=== PATIENT | female | born 1960 ===

== ENCOUNTER 2024-12-12 12:33 | Outpatient (AMB) | payer MEDICARE, SELFPAY ==
--- NOTE | 2024-12-12 12:34 | MHC.OFFVIS ---
Vital Signs 12/12/24 12:41 Height 4 ft 11.5 in Weight 162 lb BMI 32.2 BP 122/72 Blood Pressure Location Lt brachial Position Sitting Pulse 100 Pulse Source Pulse Oximeter Pulse Oximetry (%) 96 Oxygen Delivery Method Room Air Intake Visit Reasons: Scleroderma Intake Note: Patient presents for scleroderma follow up. Allergies sulfamethoxazole [From Bactrim] Allergy (Mild, Verified 12/12/24 12:43) Rash trimethoprim [From Bactrim] Allergy (Mild, Verified 12/12/24 12:43) Rash bee stings Allergy (Mild, Uncoded 12/12/24 12:43) Anaphylaxis HPI HPI Scleroderma: Details: She feels well. She has noticed decreased thickness of skin in her upper arms. Denies new infections. She feels well. She will be seeing oncologist Dr. Strong in January. She will be getting surveillance CT scans in December. [facility] Surgical History (Updated 12/12/24 @ 12:50 by Mirna Enriquez CMA) H/O lumpectomy Family History (Updated 12/12/24 @ 12:50 by Mirna Enriquez CMA) Maternal Grandfather Stroke Maternal Grandmother Heart attack Social History (Updated 12/12/24 @ 12:48 by Mirna Enriquez CMA) Household Members: Family and Friend(s) Review of Systems Const All systems reviewed & are unremarkable except as noted in HPI and below Physical Exam Vital Signs: Last Vital Signs Pulse 100 12/12/24 12:41 BP 122/72 12/12/24 12:41 Pulse Ox 96 12/12/24 12:41 Oxygen Delivery Method Room Air 12/12/24 12:41 BMI result Body Mass Index 32.2 Const Other: General: Comfortable CVS: RRR Respiratory: clear to auscultation bilaterally. Good respiratory effort Skin: Diffuse skin tightness mRSS: Fingers: L 3, R 3 Hands: L 3, R 3 Forearms: L 3, R 3 Upper arms: L 2, R 3 Face: 0 Anterior chest: 1 Abdomen: 2 Thighs: L 3, R 3 Legs: L 3, R 3 Feet: L 3 R 3 Total: 44 MSK: No tenderness of any joints. No synovitis. Good range of motion of upper extremities. 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 Status post rituximab 2nd cycle with infusion reaction x2. Methotrexate [id number] discontinued due to transaminitis), MMF 2023-. She has had improvement of cutaneous disease in her bilateral upper arms on mycophenolate mofetil. Code(s): M34.89 - Other systemic sclerosis Category: Medical Plan: Labs for disease and drug monitoring on high-risk medication ordered I plan to increase mycophenolate mofetil to a 1000 mg b.i.d. after lab results are reviewed Return to clinic 3 months (2) Other vehicle service attendant (current) drug therapy: Code(s): Z79.899 - Other vehicle service attendant (current) drug therapy Category: Medical Plan: See above Orders: Orders Erythrocyte Sedimentation Rate Today M3.89 - Other systemic sclerosis, Z79.899 - Other intermediate (current) drug therapy C Reactive Protein Today .89 - Other systemic sclerosis, Z79.899 - Other intermediate (current) drug therapy Hepatitis B,C Profile Today - Other systemic sclerosis, Z79.899 - Other vehicle service attendant (current) drug therapy Alanine Aminotransferase Today Z79.60 - medical secretary receptionist (current) use of unspecified immunomodulators and immunosuppressants Aspartate Amino Transferase Today Z79.60 - medical secretary receptionist (current) use of unspecified immunomodulators and immunosuppressants Complete Blood Count Auto Diff Today Z79.60 - half-way (current) use of unspecified immunomodulators and immunosuppressants Creatinine Today Z79.60 - half-way (current) use of unspecified immunomodulators and immunosuppressants T Spot TB Today - Other systemic sclerosis, Z79.899 - Other vehicle service attendant (current) drug therapy Coding Level of Care Code Est Pt Level 4 (55191) Complex EM visit Add On G2211 Diagnoses Diffuse cutaneous systemic sclerosis M34.89 Other intermediate (current) drug therapy Z79.899
[2024-12-12 12:41] VITALS: BP 122/72; PULSE 100; O2SAT 96; BMI 32.2
== END 2024-12-12 13:42 | disposition home or self-care (01) ==
PROVIDERS: PCP Physician Assistant Medical; Visit Provider Internal Medicine Rheumatology
DX: M34.89 Other systemic sclerosis (principal); Z79.899 Other long term (current) drug therapy
CPT/HCPCS: 99214; G2211

== ENCOUNTER 2024-12-12 12:33 | Outpatient (REF) | payer MEDICARE, MEDICAID, SELFPAY ==
--- OUTSIDE RECORDS SUMMARY | 2024-12-12 16:11 | XMS_ITS | Clinical Summary ---
Author Organization [facility] Address [address] [place] [address] Care Team Providers Care Slag Skimmer Name Role Phone Sujatha Fragoso PA-C Primary Care Provider Allergies Active Allergy Reactions Criticality Noted Date Comments Sulfamethoxazole-Trimethoprim Rash Low 2015 Bee Sting Swelling 02/15/2016 Ibuprofen 02/15/2016 Unsure Medications Medication Sig Dispensed Refills Start Date End Date Status Multiple Vitamins-Minerals (MULTIVITAMIN PO) Take 1 tablet by mouth daily. 0 Active ergocalciferol (VITAMIN D2) capsule 26307 units TAKE 1 CAPSULE BY MOUTH EVERY TWO WEEKS 3 07/09/2017 Active aspirin EC 81 MG tablet Take 1 tablet (81 mg total) by mouth daily. 0 Active metFORMIN (GLUCOPHAGE) tablet 500 mg TAKE 1 TABLET 3 TIMES A DAY FILL 05/20/15* 270 tablet 3 06/09/2018 Active Additional Information Patient taking differently: 500 mg Oral Every Morning with breakfast, Reason: Other, Reported on 12/25/2023 MICROLET LANCETS MISC Use 4 times daily E119. [id number] 400 each 1 11/26/2019 Active Ivermectin 1 % CREA Apply 1 drop topically. 0 05/18/2021 Active ferrous sulfate 325 (65 FE) MG tablet Take 1 tablet (325 mg total) by mouth every morning with breakfast. 0 Active glucose blood (Contour Next Test) test strip TEST TWO TIMES DAILY E11.9 / [id number] 200 each 3 10/30/2022 Active Insulin Degludec (Tresiba) 100 UNIT/ML SOLN Inject 10 Units under the skin every night at bedtime. And titrate as directed y 1 unit qd if FBS over 150 9 mL 0 10/03/2023 Active Insulin Pen Needle (Pen Logan) 32G X 4 MM MISC Inject 1 each under the skin daily. With insulin 100 each 1 10/03/2023 Active Glucagon (Baqsimi Two Pack) 3 MG/DOSE POWD spray or apply 1 Dose inside Nose daily as needed (altered mental status due to low blood sugar). 1 each 1 10/03/2023 Active hydroCHLOROthiazid e (MICROZIDE) 12.5 MG capsule Take 1 capsule (12.5 mg total) by mouth daily. 0 11/20/2023 Active Januvia 100 MG tablet Take 1 tablet (100 mg total) by mouth daily. 0 10/24/2023 Active Icosapent Ethyl (Vascepa) 0.5 g CAPS Take 1 capsule by mouth daily. 90 capsule 3 12/10/2023 Active Insulin Glargine (Basaglar KwikPen) 100 UNIT/ML SOPN See Instructions, Take 15 units Subcutaneous Injection Daily at bedtime. E11.9, # 15 mL, 5 Refills, Maintenance, 06/20/23 10:29:00 EDT, Solution, [id number], Partial fill upon patient request if the prescription is for a schedule II opioid sandra... 0 06/20/2023 Active methotrexate 2.5 MG tablet TAKE 5 TABLETS ONCE A WEEK ON MONDAY 0 10/31/2023 Active Tresiba FlexTouch 100 UNIT/ML SOPN INJECT 10 UNITS AT BEDTIME, INCREASE DIRECTED BY 1 UNIT/DAY IF FBG >150 3 mL 2 07/20/2024 Active lisinopril (PRINIVIL,ZESTRIL) tablet 40 mg Take 1 tablet (40 mg total) by mouth daily. 90 tablet 3 07/20/2024 Active amLODIPine (NORVASC) tablet 2.5 mg TAKE 1 TABLET (2.5 MG TOTAL) BY MOUTH DAILY. FOR BLOOD PRESSURE. CONTINUE LISINOPRIL 90 tablet 1 07/20/2024 Active simvastatin (ZOCOR) tablet 20 mg Take 1 tablet (20 mg total) by mouth every night at bedtime. 90 tablet 3 07/20/2024 Active mycophenolate (CELLCEPT) 500 MG tablet TAKE 1 TABLET BY MOUTH 2 TIMES A DAY FOR 30 DAYS. 60 tablet 0 08/23/2024 Active Active Problems Problem Noted Date Diagnosed Date Scleroderma 06/21/2022 Overview: Dr. 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 Normal LV function. Mild upper septal hypertrophy, otherwise normal. Cardiology consultation at [facility] 09/18/2017. 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 07/30/2019 Overview: Overview: Primary site unknown Henoch-Schonlein purpura 09/01/2018 Class 1 obesity due to exces s calories with serious comorbidity and body mass index (BMI) of 33.0 to 33.9 in adult 09/01/2018 Type 2 diabetes mellitus wit h hyperglycemia, with long-term current use of insulin 09/01/2018 Developmental disability 09/01/2018 Diverticulosis 09/01/2018 Hypertension 09/28/2017 Eczema 09/28/2017 Rosacea 09/28/2017 Kidney stone 09/24/2015 UTI (urinary tract infection) 11/20/2012 Immunizations Name Administration Dates Next Due Covid-19 (Moderna 12+) 100mcg/0.5mL dosage 02/22,01/25/2021 Influenza Quad (Fluarix/Fluz one/FluLaval) 0.5mL (SD-IIV4) 10/02/2022,09/24/2021,09/05/2019 Influenza Quad (Flucelvax) 0 .5mL >6mon (ccIIV4) 09/04/2018 Influenza Vaccine, Unspecified formulation 09/11 Pneumococcal Polysaccharide PPSV23 10/24/2006 Td (Tenivac) 04/26/2009 Family History Medical History Relation Name Comments Hyperlipidemia Mother Severe Type I II Obesity Mother Heart disease Other Runs in Family Relation Name Status Comments Mother Other Social History Tobacco Use Types Packs/Day Years Used Date Smoking Tobacco: Never Smokeless Tobacco: Never Alcohol Use Standard Drinks/Week Comments No 0 (1 standard drink = 0.6 oz pur e alcohol) occasionally Sex and Gender Information Value Date Recorded Sex Assigned at Not on file Gender Identity Not on file Sexual Orientation Not on file Job Start Date Occupation Industry Not on file Not on file Not on file Last Filed Vital Signs Vital Sign Reading Time Taken Comments Blood Pressure 142/83 11/22/2023 8:23 AM EST Pulse 109 11/22/2023 8:23 AM EST Temperature 36.8 ??C (98.3 ??F) 10/03/2023 1:08 PM ES T Respiratory Rate - - Oxygen Saturation 98% 10/03/2023 1:08 PM EST Inhaled Oxygen Concentration - - Weight 76.3 kg (168 lb 3.2 oz) 11/22/2023 8:23 A M EST Height 149.9 cm (4' 11 ) 10/03/2023 1:08 PM EST Body Mass Index 33.97 10/03/2023 1:08 PM EST Plan of Treatment Health Maintenance Due Date Last Done Comments Diabetes: Eye Exam (No Retinopathy) 1980 Diabetes: Foot Exam 1980 Diabetes: Microalbumin Test 1980 Shingrix-Zoster Vaccine (1 of 2) 1981 Pneumococcal Vaccine (2 of 2 - PCV) 10/24/2007 10/24/2006 DTap / Tdap / Td (1 - Tdap) 04/27/2009 04/26/2009 COVID-19 Vaccine (3 - Moderna risk series) 03/22/2021 02/22/2021, 01/25/2021 RSV Adult > 60+ Yrs or (1 - Risk 60-74 years 1-dose series) 2022 BMI Counseling 09/15/2022 09/15/2021, 08/21, 09/05/2019 Colon Cancer Screening (Colonoscopy) 11/20/2022 11/20/2012 Breast Cancer Screening (Mammogram) 01/18/2023 01/18/2021, 09/14/2020 (Pt Reported - Need documentation) Cervical Cancer Screening (Pap Smear) 09/14/2023 09/14/2020 (Pt Reported - Need documentation) Hemoglobin A1C Due 03/29/2024 09/29/2023, 1 11/30/2021, 09/14/2020 (Scheduled) Influenza Vaccine (#1) 2024 2, 09/24/2021, 09/05/2019, Additional history exists Depression Screening 10/03/2024 10/03/2023, 09/15/2021, 09/14/2020, Additional history exists Preventative Health Evaluation 10/03/2024 10/03/2023, 10/02/2022, 09/14/2020, Additional history exists Hepatitis C Screening Completed 04/27/2022 Hepatitis B Vaccines Aged Out No long er eligible based on patient's age to complete this topic RSV Ped < 20 months Aged Out No longe r eligible based on patient's age to complete this topic Care Teams Slag Skimmer Relationship Specialty Start Date End Date Sujatha Fragoso PA-C PCP - General Neuropsychiatric Aide 12/05/21
--- OUTSIDE RECORDS SUMMARY | 2024-12-12 16:11 | XMS_ITS | Encounter Summary ---
Author Organization [facility] Address [address] [place] [address] Phone Care Team Providers Care Drum Puller Name Role Phone Sujatha Fragoso Primary Care Provider Unavailabl e Encounter Details Date Type Department Care Team (Late st Contact Info) Description 07/20/2022 Telephone [facility] [address] [place] [address] Que Castillo MD [address] [facility] [address] [place] [address] Social History Tobacco Use Types Packs/Day Years Used Date Smoking Tobacco: Never Alcohol Use Standard Drinks/Week Comments No 0 (1 standard drink = 0.6 oz pur e alcohol) Comments Unknown Sex and Gender Information Value Date Recorded Sex Assigned at Not on file Legal Sex Female 5:12 PM EST Gender Identity Not on file Sexual Orientation Not on file documented as of this encounter Miscellaneous Notes * Telephone Encounter - Doris Aranda - 07/20/2022 9:41 AM EDT Pts proxy tabitha called Ruma has been diagnosed with systemic fibrosis. She has been put on rituxan. If you have any concerns call [phone] documented in this encounter Plan of Treatment Upcoming Encounters Date Type Department Care Team (Late st Contact Info) Description 01/09/2025 Orders Only [facility] [address] [place] [address] Que Castillo MD [address] [facility] [facility] [address] [place] [address] IgA nephropathy; Hypertension; Type 2 diabetes mellitus, not otherwise specified (HCC) 03/18/2025 10:15 AM EDT Office Visit [facility] [address] [phone] Que Castillo MD [address] [phone] documented as of this encounter Visit Diagnoses Not on filedocumented in this encounter Care Teams Drum Puller Relationship Specialty Start Date End Date Sujatha Fragoso PCP - General Physician Bagel Maker 02/07/24 documented as of this encounter
--- OUTSIDE RECORDS SUMMARY | 2024-12-12 16:11 | XMS_ITS | Encounter Summary ---
Author Organization [facility] Address [address] [place] [address] Phone Care Team Providers Care Medical Dosimetrist Name Role Phone Sujatha Fragoso Primary Care Provider Unavailabl e Encounter Details Date Type Department Care Team (Late st Contact Info) Description 04/27/2022 Telephone [facility] [address] [place] [address] Que Castillo MD [address] [place] [address] Social History Tobacco Use Types [...] * Telephone Encounter - Doris Aranda - 05/04/2022 11:44 AM EDT Pt called back, she spoke with Dr. Carter's office and they provided an alternate number to fax the referral too FAX # [phone] * Telephone Encounter - Doris Aranda - 04/27/2022 3:51 PM EDT Pt called, she would like to confirm if she is supposed to be taking torsemide 20 mg qd. Please advise Thank you documented in this encounter Plan of Treatment Upcoming Encounters Date Type Department Care Team (Late st Contact Info) Description 01/09/2025 Orders Only [facility] [address] [place] [phone] Que Castillo MD [address] [facility] [address] [place] [address] IgA nephropathy; Hypertension; Type 2 diabetes mellitus, not otherwise specified (HCC) 03/18/2025 10:15 AM EDT Office Visit [facility] [address] [facility] [address] [place] [phone] Que Castillo MD [address] [facility] [address] [place] [address] documented as of this encounter Visit Diagnoses Not on filedocumented in this encounter Care Teams Medical Dosimetrist Relationship Specialty Start Date End Date Sujatha Fragoso PCP - General Physician Labor Expediter 02/07/24 documented as of this encounter
--- OUTSIDE RECORDS SUMMARY | 2024-12-12 16:11 | XMS_ITS | Clinical Summary ---
Author Organization [facility] Address [address] [facility] [address] [place] [address] Phone Care Team Providers Care Extension Course Coordinator Name Role Phone Sujatha Fragoso Primary Care Provider Unavailabl e Allergies Active Allergy Reactions Criticality Noted Date Comments Bee Venom Swelling 02/15/2016 Ibuprofen 02/15/2016 Unsure Sulfamethoxazole-Trimethopr im Rash Low 02/15/2016 Other reaction(s): Rash Medications metFORMIN (GLUCOPHAGE) 500 MG tablet Take 1 tablet by mouth 3 (three) times a day Active lisinopril (PRINIVIL,ZESTR IL) 40 MG tablet Take 1 tablet by mouth 2 (two) times a day 02/23/2012 Active aspirin (ST MARBELLA) 81 MG EC tablet Take 1 tablet by mouth every morning Active Multiple Vitamins-Minera ls (CENTRUM ADULTS PO) Active Icosapent Ethyl (Vascepa) 0.5 g capsule Take 1 tablet by mouth 1 (one) time each day 02/11/2021 Active simvastatin (ZOCOR) 20 MG tablet Take 20 mg by mouth 1 (one) time each day in the evening 01/29/2021 Active Jardiance 25 MG tablet Take 1 tablet by mouth 1 (one) time each day 02/21/2021 Active SITagliptin (JANUVIA) 100 MG tablet Take 100 mg by mouth 1 (one) time each day Active hydroCHLOROthia zide (MICROZIDE) 12.5 MG capsule TAKE 1 CAPSULE BY MOUTH EVERY DAY 90 capsule 3 04/23/2024 Active ergocalciferol 1.25 MG (09189 UT) capsule TAKE 1 CAPSULE BY MOUTH EVERY 2 WEEKS 6 capsule 4 05/16/2024 Active Active Problems Problem Noted Date Diagnosed Date Obese class I 02/06/2024 Systemic sclerosis 06/21/2022 Overview (02/06/2024): Dr. 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 Normal LV function. Mild upper septal hypertrophy, otherwise normal. Cardiology consultation at [facility] 09/18/2017. Malignant melanoma 07/30/2019 Overview (03/24/2021): Primary site unknown Developmental disorder 09/01/2018 Diverticular disease 09/01/2018 Henoch-Schonlein purpura 09/01/2018 Severe obesity 09/01/2018 Type 2 diabetes mellitus 09/01/2018 Eczema 09/28/2017 Hypertension 09/28/2017 Rosacea 09/28/2017 Renal stone 09/24/2015 Urinary tract infectious disease 11/20/2012 Immunizations Name Administration Dates Next Due Influenza, MDCK, PF, Quadrivalent 09/04/2018 Influenza, Quadrivalent, Preservative Free 10/02,09/24/2021,09/05/2019 Influenza, Unspecified 09/11/2020 Moderna SARS-COV-2 02/22/2021,01/25/2021 Pneumococcal Polysaccharide 10/24/2006 TD Preservative Free 04/26/2009 Family History Relation Status Comments Mother Alive Social History Tobacco Use Types Packs/Day Years Used Date Smoking Tobacco: Never Alcohol Use Standard Drinks/Week Comments No 0 (1 standard drink = 0.6 oz pur e alcohol) Comments Unknown Sex and Gender Information Value Date Recorded Sex Assigned at Not on file Legal Sex Female 5:12 PM EST Gender Identity Not on file Sexual Orientation Not on file Last Filed Vital Signs Vital Sign Reading Time Taken Comments Blood Pressure 74/58 04/27/2022 1:23 PM EDT Pulse 102 02/07/2024 11:22 AM EDT Temperature - - Respiratory Rate - - Oxygen Saturation 96% 02/07/2024 11:22 AM EDT Inhaled Oxygen Concentration - - Weight 74.7 kg (164 lb 9.6 oz) 02/07/2024 11:22 AM EDT Height 152.4 cm (5') 03/06/2019 12:00 PM EDT Body Mass Index 32.15 03/06/2019 12:00 PM EDT Plan of Treatment Upcoming Encounters Date Type Department Care Team (Late st Contact Info) Description 01/09/2025 Orders Only [facility] [address] [facility] [address] [place] [phone] Que Castillo MD [address] [facility] [address] [place] [phone] IgA nephropathy; Hypertension; Type 2 diabetes mellitus, not otherwise specified (HCC) 03/18/2025 10:15 AM EDT Office Visit [facility] [address] [facility] [address] [place] [phone] Que Castillo MD [address] [phone] Health Maintenance Due Date Last Done Comments Breast Cancer Screening 1960 Pneumococcal Vaccine: Pediatrics (0 to 5 Years) and At-Risk Patients (6 to 64 Years) (2 of 2 - PCV) 10/24/2007 10/24/2006 Colorectal Cancer Screening: Annual FOBT 2011 Colorectal Cancer Screening: Colonoscopy 2011 Colorectal Cancer Screening: Sigmoidoscopy 2011 Diabetes: Hemoglobin A1C 02/02/2021 08/30/2019 Diabetes: Ophthalmology Exam 02/02/2021 Diabetes: Pedal Pulse Checked 02/02/2021 Diabetes: Sensory Foot Exam 02/02/2021 Diabetes: Visual Foot Exam 02/02/2021 Influenza Vaccine (#1) 2024 2, 09/24/2021, 09/11/2020, Additional history exists Hepatitis B Vaccine Aged Out No longe r eligible based on patient's age to complete this topic Procedures Procedure Name Priority Date/Time Associated Diagnosis Comments BLOOD PANEL (HC) Routine 08/30/2019 12:0 0 AM EDT from Last 3 Months or Most Recently Relevant to Health Maintenance Results * (ABNORMAL) Blood Panel (08/30/2019 12:00 AM EDT) Hemoglobin A1C 6.1(H) <5 % PVNMA 08/30/2019 us Rtama Conversion LAB [id number] LICITED RESULTS Final Result PVNMA from Last 3 Months or Most Recently Relevant to Health Maintenance Insurance [place]ICAID [place] MEDICARE [place]ICAID [place] Care Teams Extension Course Coordinator Relationship Specialty Start Date End Date Sujatha Fragoso PCP - General Physician Starch Crab 02/07/24
--- OUTSIDE RECORDS SUMMARY | 2024-12-12 16:11 | XMS_ITS | Encounter Summary ---
Author Organization [facility] Address [address] [place] [address] Phone Care Team Providers Care Cable Ferry Operator Name Role Phone Sujatha Fragoso Primary Care Provider Unavailabl e Encounter Details Date Type Department Care Team (Latest Contact Info) Description 02/24/2024 Office Communication [facility] [address] [facility] 200 [place] [address] Que Castillo MD [address] [facility] [address] [place] [address] IgA nephropathy (Primary Dx) Social History Tobacco Use Types Packs/Day Years [...] encounter Miscellaneous Notes * Telephone Encounter - Que Castillo MD - 02/24/2024 5:34 AM EDT Need to ge =t repeat urine studies and blood work in 1 week documented in this encounter Plan of Treatment Upcoming Encounters Date Type Department Care Team (Late st Contact Info) Description 01/09/2025 Orders Only [facility] [address] [place] [address] Que Castillo MD [address] [facility] 204 [place] [address] IgA nephropathy; Hypertension; Type 2 diabetes mellitus, not otherwise specified (HCC) 03/18/2025 10:15 AM EDT Office Visit [facility] [address] [facility] [address] [place] [address] Que Castillo MD [address] [facility] [address] [place] [address] Scheduled Orders Name Type Priority Associated Diagnoses Orde r Schedule Protime-INR Lab Routine IgA nephropathy Expected: 03/02/2024, Expires: 03/25/2025 documented as of this encounter Results * Albumin (03/01/2024 8:32 AM EDT) Pathologist [facility] Albumin 4.1 3.9 - 4.9 g/dL See order comments Blood (Blood, Venous) 03/01/2024 8:32 AM EDT 03/01/2024 Narrative [facility] - 03/06/2024 4:08 PM EDT Performed at: ??01 - [facility] [address] ??[id number] Pulp Grinder: Georgie Smith MD, Phone: ??[phone] us Que Castillo MD LAB BLOOD ORDERABLES Final Re sult [facility] See order comments [place] [address] * Phospholipase A2 Receptor Antibodies (03/01/2024 8:32 AM EDT) Anti-PLA2R <1.8 0.0 - 19.9 RU/mL See order comments Comment: ?Negative ?<14.0 ?Borderline ??14.0 - 19.9 ?Positive ?>19.9 Blood (Blood, Venous) 03/01/2024 8:32 AM EDT 03/01/2024 Narrative [facility] - 03/06/2024 4:08 PM EDT Performed at: ??02 - [facility] [address] ??[id number] Pulp Grinder: Raven Anguiano MD, Phone: ??[phone] us Que Castillo MD LAB BLOOD ORDERABLES Final Re sult [facility] See order comments [place] [address] * (ABNORMAL) Urinalysis with microscopic (03/01/2024 8:32 AM EDT) Specific [place], Urine 1.026 1.005 - 1.030 See order comments pH Urine 7.5 5.0 - 7.5 See order comments Color, Urine Yellow Yellow See ord er comments Appearance Urine Clear Clear See order comments WBC Esterase Urine Negative Negative See order comments Protein, Ur 3+(A) Negative/Tra ce See order comments Glucose, Ur 3+(A) Negative See orde r comments Ketones, Urine Negative Negative See o rder comments Blood Urine Negative Negative See orde r comments Bilirubin Urine Negative Negative See order comments Urobilinogen Urine 0.2 0.2 - 1.0 mg/dL See order comments Nitrite, Urine Negative Negative See o rder comments Microscopic Examination See below: See order comments Comment:Microscopic was bryson cated and was performed. Urine (Urine, Clean Catch) 03/01/2024 8:32 AM EDT 03/01/2024 Narrative [facility] - 03/06/2024 4:08 PM EDT Performed at: ??01 - [facility] [address] ??[id number] Pulp Grinder: Georgie Smith MD, Phone: ??[phone] us Que Castillo MD LAB URINE ORDERABLES Final Re sult Performing Organization Address [facility] de Phone Number [facility] See order comments [place] [address] * (ABNORMAL) Urine Albumin / Creatinine Ratio (03/01/2024 8:32 AM EDT) Creatinine, Ur 38.5 Not Estab. mg/dL See order comments Urine Microalbumin 2,608.6 Not Estab. ug/mL See order comments Comment: Results confirmed on dilution. Microalbumin/Crea tinine Ratio 6,776(H) 0 - 29 mg/g creat See order comments Comment: ? Normal: ?0 - ??29 ? Moderately increased: 30 - 300 ? Severely increased: ? >300 Urine (Urine, Clean Catch) 03/01/2024 8:32 AM EDT 03/01/2024 Narrative [facility] - 03/06/2024 4:08 PM EDT Performed at: ??01 - [facility] [address] ??[id number] Pulp Grinder: Georgie Smith MD, Phone: ??[phone] Que Castillo MD LAB URINE ORDERABLES Final Re sult Performing Organization Address [facility] Co de Phone Number [facility] See order comments [place] [address] documented in this encounter Visit Diagnoses Diagnosis IgA nephropathy- Primary IgA nephropathy IgA nephropathy Hypertension Type 2 diabetes mellitus, not otherwise specified (HCC) documented in this encounter Care Teams Cable Ferry Operator Relationship Specialty Start Date End Date Sujatha Fragoso PCP - General Physician Riveting Machine Operator 02/07/24 documented as of this encounter
--- OUTSIDE RECORDS SUMMARY | 2024-12-12 16:11 | XMS_ITS | Encounter Summary ---
Author Organization [facility] Address [address] [place] [address] Phone Care Team Providers Care Zookeeper Name Role Phone Sujatha Fragoso Primary Care Provider Unavailabl e Encounter Details Date Type Department Care Team (Late st Contact Info) Description 04/27/2022 Telephone [facility] [address] [place] [address] Que Castillo MD [address] [facility] 204 [place] [address] Social History Tobacco Use Types [...] Telephone Encounter - Doris Aranda - 04/27/2022 3:35 PM EDT Pts returned goods inspector called to [facility] scheduled her biopsy on 05/03/22, with Dr. Asher Ferrer. Office number [phone] documented in this encounter Plan of Treatment Upcoming Encounters Date Type Department Care Team (Late st Contact Info) Description 01/09/2025 Orders Only [facility] [address] [place] [address] Que Castillo MD [address] [facility] 204 [place] [address] IgA nephropathy; Hypertension; Type 2 diabetes mellitus, not otherwise specified (HCC) 03/18/2025 10:15 AM EDT Office Visit [facility] [address] [address] Que Castillo MD [address] [address] documented as of this encounter Visit Diagnoses Not on filedocumented in this encounter Care Teams Zookeeper Relationship Specialty Start Date End Date Sujatha Fragoso PCP - General Physician Block Breaker 02/07/24 documented as of this encounter
[2024-12-12 17:50] LABS: MANUAL DIFF FLAG NO
[2024-12-12 17:56] LABS: Basophils Percent Auto 0.5 % (0-2); Eosinophils Absolute Auto 0.2 X10*3/uL (0.0-0.4); Hematocrit 39.7 % (37.0-47.0); Hemoglobin 13.3 g/dl (12.0-16.0); Imm Gran Abs Auto 0.08 X10*3/uL (0.00-0.03); Lymphocytes Absolute Auto 1.9 X10*3/uL (1.2-4.9); Lymphocytes Percent Auto 23.2 % (20-40); Mean Corpuscular HGB Conc 33.5 g/dl (31.0-35.0); Mean Corpuscular Volume 89.6 fL (80.0-98.0); Mean Platelet Volume 9.3 fL (9.4-12.3); Monocytes Absolute Auto 0.4 X10*3/uL (0.1-1.2); Neutrophils Absolute Auto 5.7 x10*3/uL (2.0-8.3); Neutrophils Percent Auto 68.3 % (45-73); Platelet Count 214 X10*3/uL (160-400); Red Blood Count 4.43 X10*6/uL (4.20-5.50); Red Cell Distribution Width 13.3 % (11.0-16.0); White Blood Count 8.4 X10*3/uL (4.8-10.8)
[2024-12-12 18:10] LABS: Alanine Aminotransferase 55 U/L (0-31); Aspartate Amino Transferase 46 U/L (5-31); Estimated Glomerular Filt Rate 44
[2024-12-12 18:41] LABS: Erythrocyte Sedimentation Rate 75 MM/HR (0-20)
[2024-12-13 08:03] LABS: HBc Num1 0.12 S/CO (0.00-0.79); HBsAGNum1 0.26 S/CO (0.00-0.99); Hepatitis B Core Antibody Nonreactive (Nonreactive); Hepatitis B Surface Antigen Negative (Negative); ~HepC Num1 0.43 S/CO (0.00-0.79); ~Hepatitis B Surface Antibody NONREACTIVE (Nonreactive); ~Hepatitis C Antibody Nonreactive (Nonreactive)
[2024-12-15 21:39] LABS: TS Negative Control Passed; TS Panel A 0; TS Panel B 0; TS Positive Control Passed; TSpotTB Negative (Negative)
== END 2024-12-12 12:34 | disposition home or self-care (01) ==
LOC: HO.HKASLDS 12:33
PROVIDERS: PCP Physician Assistant Medical; Visit Provider Internal Medicine Rheumatology
DX: M34.89 Other systemic sclerosis (principal); Z79.899 Other long term (current) drug therapy; Z79.60 Long term (current) use of unspecified immunomodulators and immunosuppressants
CPT/HCPCS: 36415; 82565; 84450; 84460; 85025; 85652; 86140; 86481; 86704; 86706; 86803; 87340; 99212

== ENCOUNTER 2025-03-20 10:12 | Outpatient (AMB) | payer MEDICARE, SELFPAY ==
--- NOTE | 2025-03-20 10:26 | A.OFFVIS_ITS ---
Vital Signs 03/20/25 10:35 Height 4 ft 11.5 in Weight 162 lb 0.636 oz BMI 32.2 BP 132/90 H Blood Pressure Location Lt brachial Position Sitting Pulse 107 H Pulse Source Pulse Oximeter Pulse Oximetry (%) 97 Oxygen Delivery Method Room Air Intake Visit Reasons: 3 mo follow up Intake Note: Patient presents for 3 months follow up. Allergies sulfamethoxazole [From Bactrim] Allergy (Mild, Verified 03/20/25 10:32) Rash trimethoprim [From Bactrim] Allergy (Mild, Verified 03/20/25 10:32) Rash bee stings Allergy (Mild, Uncoded 12/12/24 12:43) Anaphylaxis HPI HPI 3 mo follow up: Details: Denies new infections. No worsening skin tightening. Patient presents with her best friend and her mother. [facility] Surgical History H/O lumpectomy Family History Maternal Grandfather Stroke Maternal Grandmother Heart attack Social History (Updated 03/20/25 @ 10:34 by LEONARDO Monge) Household Members: Family and Friend(s) Housing: Apartment Alcohol intake: never Patient Tobacco Use Status: Never used Tobacco Review of Systems Const All systems reviewed & are unremarkable except as noted in HPI and below Physical Exam Vital Signs: Last Vital Signs Pulse 107 H 03/20/25 10:35 BP 132/90 H 03/20/25 10:35 Pulse Ox 97 03/20/25 10:35 Oxygen Delivery Method Room Air 03/20/25 10:35 BMI result Body Mass Index 32.2 Const Other: General: Comfortable CVS: RRR Respiratory: clear to auscultation bilaterally. Good respiratory effort Skin: Diffuse skin tightness . She has new ulcerated lesions on her right anterior castellano mRSS: Fingers: L 3, R 3 Hands: L 3, R 3 Forearms: L 3, R 3 Upper arms: L 3, R 2 Face: 0 Anterior chest: 0 Abdomen: 3 Thighs: L 3, R 3 Legs: L 3, R 3 Feet: L 3 R 3 Total: 44 MSK: No tenderness of any joints. No synovitis. Good range of motion of upper extremities. Assessment & Plan Assessment & Plan (1) Diffuse cutaneous systemic sclerosis: Comment: She had mild transaminitis on labs from November 2024. Ultrasound was ordered but it was not performed. Patient reports she did not receive a phone call. She has developed new ulcerated lesions on right anterior castellano that are weeping serum without pus. 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 Status post rituximab 2nd cycle with infusion reaction x2. Methotrexate [id number]/[id number] discontinued due to transaminitis), MMF 2023-. She has had improvement of cutaneous disease in her bilateral upper arms on mycophenolate mofetil. Code(s): M34.89 - Other systemic sclerosis Category: Medical Plan: Ultrasound liver with elastography ordered for further evaluation of transaminitis I recommend that she contact Dermatology in regards to her new ulcerated lesions on her anterior castellano for evaluation and management for possible sooner appointment. She has an appointment on 04/03/2025. She was informed that if she develops pus or bleeding, to contact Dermatology for culture due to concern of infection. Labs for disease monitoring and high-risk medication ordered Return to clinic in 3 months (2) Other shelter (current) drug therapy: Code(s): Z79.899 - Other shelter (current) drug therapy Category: Medical Plan: See above (3) Transaminitis: Code(s): R74.01 - Elevation of levels of liver transaminase levels Category: Medical Plan: See above Orders: Orders Creatinine Today Z79.60 - terminal manager (current) use of unspecified im munomodulators and immunosuppressants Liver Panel Today M34.89 - Other systemic sclerosis, Z79.899 - Other intermediate teacher (current) drug therapy Complete Blood Count Auto Diff Today Z79.60 - care home (current) use of unspecified immunomodulators and immunosuppressants Erythrocyte Sedimentation Rate Today Z79.899 - Other shelter (current) drug therapy C Reactive Protein Today Z79.899 - Other shelter (current) drug therapy US abdomen bennett w elastography Today R74.01 - Elevation of levels of liver transaminase levels Medications: New mycophenolate mofetil 500 mg PO BID 90 tabs 0RF Coding Level of Care Code Est Pt Level 4 (27355) Complex EM visit Add On G2211 Diagnoses Diffuse cutaneous systemic sclerosis M34.89 Other shelter (current) drug therapy Z79.899 Transaminitis R74.01
[2025-03-20 10:35] VITALS: BP 132/90; PULSE 107; O2SAT 97; BMI 32.2
--- OUTSIDE RECORDS SUMMARY | 2025-03-20 11:33 | XMS_ITS | Encounter Summary ---
Author Organization [facility] Address [address] [place] [address] Phone Care Team Providers Care Distribution Technician Name Role Phone Sujatha Fragoso Primary Care Provider Unavailabl e Encounter Details Date Type Department Care Team (Late st Contact Info) Description 04/27/2022 Telephone [facility] [address] [place] [address] Que Castillo MD [address] [place] [address] Social History Tobacco Use Types [...] to fax the referral too FAX # [phone] * Telephone Encounter - Doris Aranda - 04/27/2022 3:51 PM EDT Pt called, she would like to confirm if she is supposed to be taking torsemide 20 mg qd. Please advise Thank you documented in this encounter Plan of Treatment Upcoming Encounters Date Type Department Care Team (Late st Contact Info) Description 04/15/2026 1:00 PM EDT Office Visit [facility] [address] [facility] [address] [place] [address] Que Castillo MD [address] [address] documented as of this encounter Visit Diagnoses Not on filedocumented in this encounter Care Teams Distribution Technician Relationship Specialty Start Date End Date Sujatha Fragoso PCP - General Physician Hub Cutter 02/07/24 documented as of this encounter
--- OUTSIDE RECORDS SUMMARY | 2025-03-20 11:33 | XMS_ITS | Clinical Summary ---
Author Organization [facility] Address [address] [place] [address] Care Team Providers Care Auto Electrical Technician Name Role Phone Sujatha Fragoso PA-C Primary Care Provider Allergies Active Allergy Reactions Criticality Noted Date Comments Sulfamethoxazole-Trimethoprim Rash Low 2015 Bee Sting Swelling 02/15/2016 Ibuprofen 02/15/2016 Unsure Medications Medication Sig Dispensed Refills Start Date End Date Status Multiple Vitamins-Minerals (MULTIVITAMIN PO) Take 1 tablet by mouth daily. 0 Active ergocalciferol (VITAMIN D2) capsule 85601 units TAKE 1 CAPSULE BY MOUTH EVERY [...] LANCETS MISC Use 4 times daily E119. [id number] 400 each 1 11/26/2019 Active Ivermectin 1 % CREA Apply 1 drop topically. 0 05/18/2021 Active ferrous sulfate 325 (65 FE) MG tablet Take 1 tablet (325 mg total) by mouth every morning with breakfast. 0 Active glucose blood (Contour Next Test) test strip TEST TWO TIMES DAILY E11.9 / [id number] 200 each 3 10/30/2022 Active Insulin Degludec (Tresiba) 100 UNIT/ML SOLN Inject 10 Units under the skin every night at bedtime. And titrate as directed y 1 unit qd if FBS over 150 9 mL 0 10/03/2023 Active Insulin Pen Needle (Pen Darragh) 32G X 4 MM MISC Inject 1 [...] (EK G) 09/05/2019 Overview: Echocardiogram 09/28/2017 at [facility]. Normal LV function. Mild upper septal hypertrophy, otherwise normal. Cardiology consultation at [facility] 09/18/2017. 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
--- OUTSIDE RECORDS SUMMARY | 2025-03-20 11:34 | XMS_ITS | Clinical Summary ---
Author Organization [facility] Address [address] [facility] [address] [place] [address] Phone Care Team Providers Care Director Of Estate Name Role Phone Sujatha Fragoso Primary Care [...] by mouth 2 (two) times a day 2 Active aspirin (ST MARBELLA) 81 MG EC tablet Take 1 tablet by mouth every morning Active Multiple Vitamins-Minera ls (CENTRUM ADULTS PO) Active Icosapent Ethyl (Vascepa) 0.5 g capsule Take 1 tablet by mouth 1 (one) time each day 1 Active simvastatin (ZOCOR) 20 MG tablet Take 20 mg by mouth 1 (one) time each day in the evening 1 Active Jardiance 25 MG tablet Take 1 tablet by mouth 1 (one) time each day 1 Active SITagliptin (JANUVIA) 100 MG tablet Take 100 mg by mouth 1 (one) time each day Active hydroCHLOROthia zide (MICROZIDE) 12.5 MG capsule TAKE 1 CAPSULE BY MOUTH EVERY DAY 90 capsule 3 4 Active ergocalciferol 1.25 MG (35256 UT) capsule TAKE 1 CAPSULE BY MOUTH EVERY 2 WEEKS 6 capsule 4 4 Active amLODIPine (NORVASC) 2.5 MG tablet TAKE 1 TABLET (2.5 MG TOTAL) BY MOUTH DAILY. FOR BLOOD PRESSURE. CONTINUE LISINOPRIL Active folic acid (FOLVITE) 1 MG tablet Take 1 mg by mouth 1 (one) time each day Active Active Problems Problem Noted Date Diagnosed Date Chronic kidney disease, stage 2 (mild) Proteinuria 03/18/2025 Obese class I 02/06/2024 Systemic sclerosis 06/21/2022 [...] G) 09/05/2019 Overview (03/24/2021): Echocardiogram 09/28/2017 at [facility]. Normal LV function. Mild upper septal hypertrophy, otherwise normal. Cardiology consultation at [facility] 09/18/2017. Malignant melanoma 07/30/2019 Overview (03/24/2021): Primary site unknown Developmental disorder 09/01/2018 Diverticular disease 09/01/2018 Henoch-Schonlein purpura 09/01/2018 Severe obesity 09/01/2018 Type 2 diabetes mellitus 09/01/2018 Eczema 09/28/2017 Hypertension 09/28/2017 Rosacea 09/28/2017 Renal stone 09/24/2015 Urinary tract infectious disease 11/20/2012 Encounters Date Type Department Care Team Description 03/20/2025 Office Communication [facility] [address] [address] Que Castillo MD Persistent proteinuria (Primary Dx) 03/18/2025 10:15 AM EDT Office Visit [facility] [address] [facility] [address] [place] [address] Que Castillo MD Hypertension (Primary Dx); Persistent proteinuria 02/28/2025 Refill [facility] [address] [facility] [address] [place] [address] Elizabeth Wiley MA 01/09/2025 Orders Only [facility] [address] [facility] [address] [place] [address] Que Castillo MD IgA nephropathy; Hypertension; Type 2 diabetes mellitus, not otherwise specified (HCC) from Last 3 Months Immunizations Immunization Administration Dates Next Due Influenza, MDCK, PF, [...] Sign Reading Time Taken Comments Blood Pressure 137/80 03/18/2025 10:31 AM EDT Pulse 59 03/18/2025 10:31 AM EDT Temperature - - Respiratory Rate - - Oxygen Saturation 98% 03/18/2025 10:31 AM EDT Inhaled Oxygen Concentration - - Weight 68.9 kg (152 lb) 03/18/2025 10:31 AM EDT Height 152.4 cm (5') 03/06/2019 12:00 PM EDT Body Mass Index 29.69 03/06/2019 12:00 PM EDT Plan of Treatment Upcoming Encounters Date Type Department Care Team (Late st Contact Info) Description 04/15/2026 1:00 PM EDT Office Visit [facility] [address] [facility] [address] [place] [address] Que Castillo MD [address] [address] Health Maintenance Due Date Last Done Comments Breast Cancer Screening 1960 Pneumococcal Vaccine: 50+ Years (2 of 2 - PCV) 10/24/2007 10/24/2006 Colorectal Cancer Screening: Annual FOBT 2011 Colorectal Cancer Screening: Colonoscopy 2011 Colorectal Cancer Screening: Sigmoidoscopy 2011 Diabetes: Hemoglobin A1C 02/02/2021 08/30/2019 Diabetes: Ophthalmology Exam 02/02/2021 Diabetes: Pedal Pulse Checked 02/02/2021 Diabetes: Sensory Foot Exam 02/02/2021 Diabetes: Visual Foot Exam 02/02/2021 Influenza Vaccine (Season Ended) 2025 10/02/2022, 09/24/2021, 09/11/2020, Additional history exists Pneumococcal Vaccine: Peds (0 to 5 Years) and At-Risk Patients (6 to 49 Years) Discontinued 10/24/2006 Hepatitis B Vaccine Aged Out No longe r eligible based on patient's age to complete this topic Procedures Procedure Name Priority Date/Time Associated Diagnosis Comments PROTEIN / CREATININE RATIO, URINE Today 03/18/2025 11:43 AM EDT Hypertension Persistent proteinuria URINE ALBUMIN / CREATININE RATIO Today 03/18/2025 11:43 AM EDT Hypertension Persistent proteinuria URINALYSIS WITH MICROSCOPIC Today 03/18/2025 11:43 AM EDT Hypertension Persistent proteinuria RENAL FUNCTION PANEL Today 03/18/2025 11:43 AM EDT Hypertension Persistent proteinuria MICROSCOPIC EXAMINATION - DO NOT USE Today 03/18/2025 11:43 AM EDT BLOOD PANEL (HC) Routine 08/30/2019 12:0 0 AM EDT from Last 3 Months or Most Recently Relevant to Health Maintenance Results * Microscopic Examination (03/18/2025 11:43 AM EDT) WBC, Urine 0-5 0 - 5 /hpf [facility] [place] RBC, Urine None seen 0 - 2 /hpf [facility] [place] Squamous Epithelial, Urine 0-10 0 - 10 /hpf [facility] [place] Casts None seen None seen /lpf [facility] [place] Bacteria, Urine None seen None seen/Few [facility] [place] 03/18/2025 11:4 3 AM EDT 03/18/2025 Que Castillo MD LAB MICROBIOLOGY - GENERAL OR DERABLES Final Result Performing Organization Address [facility]/ZIP Co de Phone Number [facility] [place] [address] [place] [address] * (ABNORMAL) Protein, Total, Random Urine w/Creatinine (Protein/Creat Ratio) (03/18/2025 11:43 AM EDT) Creatinine, Ur 20.0 Not Estab. mg/dL [facility] [place] Protein, Ur 225.1 Not Estab. mg/dL [facility] [place] Comment: Results confirmed on dilution. Urine Protein/Creati nine Ratio 11,255(H) 0 - 200 mg/g creat [facility] [place] Urine (Urine, Clean Catch) 03/18/2025 11:43 AM EDT 03/18/2025 Que Castillo MD LAB URINE ORDERABLES Final Re sult Performing Organization Address City/[facility]/ZIP Co de Phone Number [facility] [place] [address] [place] [address] * (ABNORMAL) Urine Albumin / Creatinine Ratio (03/18/2025 11:43 AM EDT) Albumin, Urine 1,289.2 Not Estab. ug/mL [facility] [place] Comment: Results confirmed on dilution. Albumin/Creatin ine Ratio 6,446(H) 0 - 29 mg/g creat [facility] [place] Comment: ? Normal: ?0 - ??29 ? Moderately increased: 30 - 300 ? Severely increased: ? >300 Urine (Urine, Clean Catch) 03/18/2025 11:43 AM EDT 03/18/2025 us Que Castillo MD LAB URINE ORDERABLES Final Re sult [facility] [place] [facility] [address] [place] [address] * (ABNORMAL) Urinalysis with microscopic (03/18/2025 11:43 AM EDT) Specific [place], Urine 1.027 1.005 - 1.030 [facility] [place] [phone] pH Urine 6.0 5.0 - 7.5 [facility] [place] Color, Urine Yellow Yellow [facility] [place] Appearance Urine Clear Clear [facility] [place] WBC Esterase Urine Negative Negative [facility] [place] [phone] Protein, Ur 3+(A) Negative/Tra ce [facility] [place] [facility] Glucose, Ur 3+(A) Negative [facility] [place] [phone] Ketones, Urine Negative Negative [facility] [place] Blood Urine Negative Negative [facility] [place] Bilirubin Urine Negative Negative [facility] [place] Urobilinogen Urine 0.2 0.2 - 1.0 mg/dL [facility] [place] Nitrite, Urine Negative Negative [facility] [place] Microscopic Examination See below: [facility] [place] Comment:Microscopic was bryson cated and was performed. Urine (Urine, Clean Catch) 03/18/2025 11:43 AM EDT 03/18/2025 us Que Castillo MD LAB URINE ORDERABLES Final Re sult [facility] [place] [facility] [address] [place] [address] * (ABNORMAL) Renal Function Panel (03/18/2025 11:43 AM EDT) Glucose 380(H) 70 - 99 mg/dL [facility] [place] BUN 29(H) 8 - 27 mg/dL [facility] [place] [facility] Creatinine 0.98 0.57 - 1.00 mg/dL [facility] [place] [facility] eGFR CKD-EPI CR 2020 65 >59 mL/min/1.7 3 [facility] [place] BUN/Creatinine Ratio 30(H) 12 - 28 [facility] [place] Sodium 136 134 - 144 mmol/L [facility] [place] Potassium 4.6 3.5 - 5.2 mmol/L [facility] [place] Chloride 96 96 - 106 mmol/L [facility] [place] Bicarbonate (CO2) 18(L) 20 - 29 mmol/L [facility] [place] [facility] Calcium 9.9 8.7 - 10.3 mg/dL [facility] [place] Albumin 4.4 3.9 - 4.9 g/dL [facility] [place] Phosphorus 4.1 3.0 - 4.3 mg/dL [facility] [place] Blood (Blood, Venous) 03/18/2025 11:43 AM EDT 03/18/2025 us Que Castillo MD LAB BLOOD ORDERABLES Final Re sult [facility] [address] [place] [phone] * (ABNORMAL) Blood Panel (08/30/2019 12:00 AM EDT) Hemoglobin A1C 6.1(H) <5 % [facility] 08/30/2019 us [facility] [id number] LICITED RESULTS Final Result Performing Organization Address City/[facility]/ZIP Co de Phone Number [facility] from Last 3 Months or Most Recently Relevant to Health Maintenance Insurance Medicaid [place] Medicare Medicare Medicaid [place] Care Teams Director Of Estate Relationship Specialty Start Date End Date Sujatha Fragoso PCP - General Physician Veneer Slicing Machine Operator 02/07/24
--- OUTSIDE RECORDS SUMMARY | 2025-03-20 11:34 | XMS_ITS | Encounter Summary ---
Author Organization [facility] Address [address] [address] Phone Care Team Providers Care Toll Bridge Operator Name Role Phone Sujatha Fragoso Primary Care Provider Unavailabl e Reason for Referral * Imaging (Routine) - Pending Review Specialty Diagnoses / Procedures Referred By Ramiro t Referred To Contact Diagnoses Persistent proteinuria Procedures US Guided Renal Biopsy Que Castillo MD [address] [address] Phone: tel: fax: Referral ID Status Reason Start Date Expiration Date V isits Requested Visits Authorized [id number] Pending Review 03/20/2025 03/20/2026 1 1 Encounter Details Date Type Department Care Team (Latest Contact Info) Description 03/20/2025 Office Communication [facility] [address] [address] Que Castillo MD [address] [address] Persistent proteinuria (Primary Dx) Social History Tobacco Use Types [...] Telephone Encounter - Que Castillo MD - 03/20/2025 8:50 AM EDT Schedule kidney Bx with [facility] ( Dr Head)---fyi PT's mom coordinates all her care but her Mom has some memory issues so appreciate all your help it getting this sorted out Pls tell Dr Head to send Bx to [facility] Also needs f/u with me in 3-4 weeks documented in this encounter Plan of Treatment Upcoming Encounters Date Type Department Care Team (Late st Contact Info) Description 04/15/2026 1:00 PM EDT Office Visit [facility] [address] [address] Que Castillo MD [address] [address] Scheduled Orders Name Type Priority Associated Diagnoses Orde r Schedule US Guided Renal Biopsy Imaging Today Persistent proteinuria Expected: 03/20/2025, Expires: 03/20/2026 Protime-INR Lab Today Persistent proteinuria Expected: 03/20/2025, Expires: 04/20/2026 Phospholipase A2 Receptor Antibodies Lab Today Persistent proteinuria Expected: 03/20/2025, Expires: 04/20/2026 SHASHI W/Reflex Lab Today Persistent proteinuria Expected: 03/20/2025, Expires: 04/20/2026 C3 complement Lab Today Persistent proteinuria Expected: 03/20/2025, Expires: 04/20/2026 C4 complement Lab Today Persistent proteinuria Expected: 03/20/2025, Expires: 04/20/2026 Serum free light chains Lab Today Persistent proteinuria Expected: 03/20/2025, Expires: 04/20/2026 Immunofixation electrophoresis Lab Today Persistent proteinuria Expected: 03/20/2025, Expires: 04/20/2026 documented as of this encounter Visit Diagnoses Diagnosis Persistent proteinuria- Primary documented in this encounter Care Teams Toll Bridge Operator Relationship Specialty Start Date End Date Sujatha Fragoso PCP - General Physician Churn Tender 02/07/24 documented as of this encounter
--- OUTSIDE RECORDS SUMMARY | 2025-03-20 11:34 | XMS_ITS ---
[facility] Name [facility] Organization Unknown Results Test Name/Text Value Interpretation Date Range Source Trigl SerPl-mCnc 528mg/dL Above high normal [id number] - 150 [facility] HDLc SerPl-mCnc 39mg/dL Below low normal [id number] - [facility] LDLc SerPl Calc-mCnc Normal [id number] [facility] NonHDLc SerPl-mCnc 221mg/dL(calc) Above high normal [id number] 1415 - 130 [facility] Cholest SerPl-mCnc 260mg/dL Above high normal [id number] - 200 [facility] Cholest/HDLc SerPl 6.7(calc) Above high normal [id number] - 5 [facility] LDLc SerPl Direct Assay-mCnc 131mg/dL Above high normal [id number] - 100 [facility] ALT SerPl-cCnc 34U/L Above high normal [id number] 6 - 29 [facility] eGFRcr SerPlBld CKD-EPI 2020 63mL/min/1.73m2 Normal [id number] - [facility] BUN SerPl-mCnc 34mg/dL Above high normal [id number] 7 - 25 [facility] Creat SerPl-mCnc 1mg/dL Normal [id number] 0.5 - 1.05 [facility] ALP SerPl-cCnc 216U/L Above high normal [id number] 37 - 153 [facility] Sodium SerPl-sCnc 131mmol/L Below low normal [id number] 13 5 - 146 [facility] AST SerPl-cCnc 33U/L Normal [id number] 10 - 35 [facility] Calcium SerPl-mCnc 9.4mg/dL Normal [id number] 8.6 - 10 .4 [facility] Bilirub SerPl-mCnc 0.5mg/dL Normal [id number] 0.2 - 1. 2 [facility] CO2 SerPl-sCnc 26mmol/L Normal [id number] 20 - 32 [facility] Glucose SerPl-mCnc 328mg/dL Above high normal [id number] 65 - 99 [facility] Prot SerPl-mCnc 6.9g/dL Normal [id number] 6.1 - 8.1 [facility] Globulin Ser Calc-mCnc 2.7g/dL(calc) Normal [id number] 1.9 - 3.7 [facility] Potassium SerPl-sCnc 4.1mmol/L Normal [id number] 3.5 - 5.3 [facility] Chloride SerPl-sCnc 94mmol/L Below low normal [id number] 98 - 110 [facility] Albumin SerPl-mCnc 4.2g/dL Normal [id number] 3.6 - 5. 1 [facility] BUN/Creat SerPl 34(calc) Above high normal [id number] 6 - 22 [facility] Albumin/Glob SerPl 1.6(calc) Normal [id number] 1 - 2.5 [facility] HbA1c MFr Bld >14.0 Above high normal [id number] - 5.7 [facility] Encounters Encounter Type Encounter Reason Primary Diagnosis Location Date Ambulatory [facility] 03/20/2025 [facility]ulatory [facility] 03/20/2025 [facility]ulatory [facility] 03/03/2025 Ambulatory [facility] 03/03/2025 Care Team Organization Name Specialty Phone Email Start Date End Da te [facility] 2024
--- OUTSIDE RECORDS SUMMARY | 2025-03-20 11:34 | XMS_ITS | Encounter Summary ---
Author Organization [facility] Address [address] [place] [address] Phone Care Team Providers Care Gas Pumping Station Operator Name Role Phone Sujatha Fragoso Primary Care Provider Unavailabl e Encounter Details Date Type Department Care Team (Late st Contact Info) Description 04/27/2022 Telephone [facility] [address] [place] [address] Que Castillo MD [address] [facility] [address] [place] [address] Social History Tobacco Use Types [...] Aranda - 04/27/2022 3:35 PM EDT Pts research nurse practitioner called to [facility] scheduled her biopsy on 05/03/22, with Dr. Asher Ferrer. Office number [phone] documented in this encounter Plan of Treatment Upcoming Encounters Date Type Department Care Team (Late st Contact Info) Description 04/15/2026 1:00 PM EDT [facility] [address] [facility] [address] [place] [address] Que Castillo MD [address] [facility] [address] [place] [address] documented as of this encounter Visit Diagnoses Not on filedocumented in this encounter Care Teams Gas Pumping Station Operator Relationship Specialty Start Date End Date Sujatha Fragoso PCP - General Physician Bobbin Cleaner 02/07/24 documented as of this encounter
--- OUTSIDE RECORDS SUMMARY | 2025-03-20 11:34 | XMS_ITS | Encounter Summary ---
Author Organization [facility] Address [address] [place] [address] Phone Care Team Providers Care Staff Development Manager Name Role Phone Sujatha Fragoso Primary Care Provider Unavailabl e Encounter Details Date Type Department Care Team (Late st Contact Info) Description 07/20/2022 Telephone [facility] [address] [place] [address] Que Castillo MD [address] [facility] [address] [place] [address] Social History Tobacco Use Types [...] rituxan. If you have any concerns call [phone] documented in this encounter Plan of Treatment Upcoming Encounters Date Type Department Care Team (Late st Contact Info) Description 04/15/2026 1:00 PM EDT Office Visit [facility] [address] [facility] [address] [place] [address] Que Castillo MD [address] [facility] [address] [place] [address] documented as of this encounter Visit Diagnoses Not on filedocumented in this encounter Care Teams Staff Development Manager Relationship Specialty Start Date End Date Sujatha Fragoso PCP - General Physician Table Games Floor Supervisor 02/07/24 documented as of this encounter
--- OUTSIDE RECORDS SUMMARY | 2025-03-20 11:34 | XMS_ITS | Encounter Summary ---
Author Organization [facility] Address [address] [address] Phone Care Team Providers Care Mine Patrol Name Role Phone Sujatha Fragoso Primary Care Provider Unavailabl e Encounter Details Date Type Department Care Team (Late st Contact Info) Description 03/18/2025 10:15 AM EDT Office Visit [facility] [address] [address] Que Castillo MD [address] [address] Hypertension (Primary Dx); Persistent proteinuria Social History Tobacco Use Types Packs/Day Years [...] on file documented as of this encounter Last Filed Vital Signs Vital Sign Reading Time Taken Comments Blood Pressure 137/80 03/18/2025 10:31 AM EDT Pulse 59 03/18/2025 10:31 AM EDT Temperature - - Respiratory Rate - - Oxygen Saturation 98% 03/18/2025 10:31 AM EDT Inhaled Oxygen Concentration - - Weight 68.9 kg (152 lb) 03/18/2025 10:31 AM EDT Height - - Body Mass Index 29.69 03/06/2019 12:00 PM EDT documented in this encounter Patient Instructions * Patient Instructions* Que Castillo MD - 03/18/2025 10:15 AM EDT No NSAIDS - Do not take non-steroidal anti-inflammatory medications (NSAIDS) such as Ibuprofen (Advil, Motrin, etc), Naproxen (Aleve, etc), Celecoxib (Celebrex) or Ketoprofen. These common arthritis medications can cause permanent kidney damage or worsen your kidney damage. For mild occasional pain, Acetaminophen (Tylenol, etc) is safe for your kidneys. Sodium and Your CKD Diet: How to Spice Up Your Cooking What is sodium? Sodium is a mineral found naturally in foods and is the major part of table salt. What are the effects of eating too much sodium? When your kidneys are not healthy, extra sodium and fluid build up in your body. This can cause swollen ankles, puffiness, a rise in blood pressure, shortness of breath, and/or fluid around your heart and lungs. See the following table for suggestions on how to reduce sodium in your diet. LIMIT THE [AMOUNT OF... FOOD TO LIMIT BECAUSE OF THEIR HIGH SODIUM CONTENT ACCEPTABLE SUBSTITUTES SALT & SALT SEASONINGS Table salt Seasoning salt Garlic salt Onion salt Celery salt Lemon pepper Lite salt Meat tenderizer Bouillon cubes Flavor enhancers Fresh garlic, fresh onion, garlic powder, onion powder, black [pepper, lemon juice, low-sodium/salt-free seasoning blends, vinegar SALTY FOODS Barbecue sauce Steak sauce Soy sauce Teriaky sauce Oyster sauce Salted Snacks such as Crackers Potato chips [place] chips Pretzels Tortilla chips Nuts Popcorn [place] seeds Homemade or low- sodium sauces and salad dressings; Vinegar, dry mustard, unsalted popcorn, pretzels, tortilla or corn chips Cured Foods Ham Salt pork Young Sauerkraut Pickles, pickle relish Lox & Bautista Olives Fresh beef, veal, pork, poultry, fish, eggs [place] MEATS Hot Dogs Cold cuts, deli meats Pastrami Sausage Corned beef Spam Low-salt deli meats PROCESSED FOODS Buttermilk Cheese Canned: Soups Tomato products Vegetable juices Canned vegetables Convenience Foods such as: TV Dinners Canned raviolis [place] Macaroni & Cheese Spaghetti Frozen prepared foods Fast foods Natural cheese (1-2 oz Per week) Homemade or dav,1- sodium soups, canned food without added salt Homemade casseroles without added salt, made with fresh or raw vegetables, fresh meat, stefano, pasta, or unsalted canned vegetables Some salt or sodium is needed for body water balance. But when your kidneys lose the ability to control sodium and water balance, you may experience the following: thirst fluid gain high blood pressure discomfort during dialysis By using less sodium in your diet, you can control these problems. Hints to keep your sodium intake down Cook with herbs and spices instead of salt. (Refer to Spice Up Your Cooking section for further suggestions.) Read food labels and choose those foods low in sodium. Avoid salt substitutes and specialty low-sodium foods made with salt substitutes because they are high in potassium. When eating out, ask for meat or fish without salt. Ask for gravy or sauce on the side; these may contain large amounts of salt and should be used in small amounts . Limit use of canned, processed and frozen foods. Some information about reading labels Understanding the terms: Sodium Free - Only a trivial amount of sodium per serving. Very Low Sodium - 35 mg or less per serving. Low Sodium - 140 mg or less per serving. Reduced Sodium - Foods in which the level of sodium is reduced by 25%. Light or Lite in Sodium - Foods in which the sodium is reduced by at least 50% . Simple rule of thumb : If salt is listed in the first five ingredients, the item is probably too high in sodium to use. All food labels now have milligrams (mg) of sodium listed. Follow these steps when reading the sodiwn information on the label: 1. Know how much sodium you are allowed each day. Remember that there are 1000 milligrams (mg) in 1gram. For [id number], if your diet prescription is 2 grams of sodium , your limit is 2000 milligrams per day. Consider the sodium value or other food to be eaten during the day. 2. Look at the package label. Check the serving size. Nutrition values are expressed per rina g. How does this compare to your total daily allowance? If the sodium level is 500 mg or more per serving, the item is not a good choice. 3. Compare labels of similar products. Select the lowest sodium level for the same serving size. How to Spice Up Your Cooking Giving up salt does not mean giving up flavor. Learn to season your food with herbs and spices. Be creative and experiment for a new and exciting flavor. What kinds of spices and herbs should I use instead of salt to add flavor? Try the following spices with the foods listed. Allspice: Use with beef, fish, beets, cabbage, canots, peas, fruit. Basil: Use with beef, pork, most vegetables. [place]: Use with beef, pork, most vegetables. [place]aushal: Use with beef, pork, green beans, cauliflower, cabbage, beets, asparagus, and in dips and marinades. Cardamom: Use with fruit and in baked goods. Woods: Use with beef, chicken, pork, fish, green beans, carrots and in marinades. Dill: Use with beef, chicken, green beans, cabbage, carrots, peas and in dips. Michelle: Use with beef, chicken, pork, green beans, cauliflower and eggplant. Marjoram: Use with beef, chicken, pork, green beans, cauliflower and eggplant. Bettye: Use with chicken, pork, cauliflower, peas and in marinades. Thyme: Use with beef, chicken, pork, fish, green beans, beets and carrots. Buster: Use with chicken, pork, eggplant and in dressing. Tarragon: Use with fish, chicken, asparagus, beets, cabbage, cauliflower and in marinades. Tips for cooking with herbs and spices Purchase spices and herbs in small amounts . When they sit on the shelf for years they lose their flavor. Use no more than ?? teaspoon of dried spice (?? of fresh) per pound of meat. Add ground spices to food about 15 minutes before the end of the cooking period. Add whole spices to food at least one hour before the end of the cooking period. Combine herbs with oil or butter, set for 30 minutes to bring out their flavor, then brush on foodswhile they cook, or brush meat with oil and sprinkle herbs one hour before coolcing. Crush dried herbs before adding to foods. Can I use salt substitutes? Caution! If you are told to limit potassium in your diet, be very cautious about using salt substitutes because most of them contain some form of potassium. Check with your doctor or dietitian beforeusing and salt substitute. [place] and create your own seasoning containing those spices that you like. If you would like to become a volunteer and find out more about what's happening where you live, contact your local [facility] Affiliate. Blood pressure monitoring education: Monitor home blood pressure values after sitting for 5 minutes with back and arm support. Keep a log. Bring your log and blood pressure cuff to your next visit. documented in this encounter Plan of Treatment Upcoming Encounters Date Type Department Care Team (Late st Contact Info) Description 04/15/2026 1:00 PM EDT Office Visit [facility] [address] [address] Que Castillo MD [address] [address] documented as of this encounter Procedures Procedure Name Priority Date/Time Associated Diagnosis Comments MICROSCOPIC EXAMINATION - DO NOT USE Today 03/18/2025 11:43 AM EDT PROTEIN / CREATININE RATIO, URINE Today 03/18/2025 11:43 AM EDT Hypertension Persistent proteinuria URINE ALBUMIN / CREATININE RATIO Today 03/18/2025 11:43 AM EDT Hypertension Persistent proteinuria URINALYSIS WITH MICROSCOPIC Today 03/18/2025 11:43 AM EDT Hypertension Persistent proteinuria RENAL FUNCTION PANEL Today 03/18/2025 11:43 AM EDT Hypertension Persistent proteinuria documented in this encounter Results * Microscopic Examination (03/18/2025 11:43 AM EDT) WBC, Urine 0-5 0 - 5 /hpf [facility] RBC, Urine None seen 0 - 2 /hpf [facility] Squamous Epithelial, Urine 0-10 0 - 10 /hpf [facility] Casts None seen None seen /lpf [facility] Bacteria, Urine None seen None seen/Few [facility] 03/18/2025 11:4 3 AM EDT 03/18/2025 Que Castillo MD LAB MICROBIOLOGY - GENERAL OR DERABLES Final Result Performing Organization Address City/[facility]/ZIP Co de Phone Number [facility] [place] [address] [place] [address] * (ABNORMAL) Protein, Total, Random Urine w/Creatinine (Protein/Creat Ratio) (03/18/2025 11:43 AM EDT) Creatinine, Ur 20.0 Not Estab. mg/dL [facility] Protein, Ur 225.1 Not Estab. mg/dL [facility] Comment: Results confirmed on dilution. Urine Protein/Creati nine Ratio 11,255(H) 0 - 200 mg/g creat [facility] Urine (Urine, Clean Catch) 03/18/2025 11:43 AM EDT 03/18/2025 Que Castillo MD LAB URINE ORDERABLES Final Re sult [facility] [place] [facility] [address] [place] [address] * (ABNORMAL) Urine Albumin / Creatinine Ratio (03/18/2025 11:43 AM EDT) Albumin, Urine 1,289.2 Not Estab. ug/mL [facility] Comment: Results confirmed on dilution. Albumin/Creatin ine Ratio 6,446(H) 0 - 29 mg/g creat [facility] Comment: ? Normal: ?0 - ??29 ? Moderately increased: 30 - 300 ? Severely increased: ? >300 Urine (Urine, Clean Catch) 03/18/2025 11:43 AM EDT 03/18/2025 us Que Castillo MD LAB URINE ORDERABLES Final Re sult [facility] [address] [place] [address] * (ABNORMAL) Urinalysis with microscopic (03/18/2025 11:43 AM EDT) Specific [place], Urine 1.027 1.005 - 1.030 [facility] pH Urine 6.0 5.0 - 7.5 [facility] [phone] Color, Urine Yellow Yellow [facility] Appearance Urine Clear Clear [facility] [place] WBC Esterase Urine Negative Negative [facility] Protein, Ur 3+(A) Negative/Tra ce [facility] Glucose, Ur 3+(A) Negative [facility] Ketones, Urine Negative Negative [facility] [place] [phone] Blood Urine Negative Negative [facility] Bilirubin Urine Negative Negative [facility] [place] [phone] Urobilinogen Urine 0.2 0.2 - 1.0 mg/dL [facility] Nitrite, Urine Negative Negative [facility] [place] Microscopic Examination See below: [facility] Comment:Microscopic was bryson cated and was performed. Urine (Urine, Clean Catch) 03/18/2025 11:43 AM EDT 03/18/2025 us Que Castillo MD LAB URINE ORDERABLES Final Re sult [facility] [address] [place] [address] * (ABNORMAL) Renal Function Panel (03/18/2025 11:43 AM EDT) Glucose 380(H) 70 - 99 mg/dL [facility] BUN 29(H) 8 - 27 mg/dL [facility] Creatinine 0.98 0.57 - 1.00 mg/dL [facility] eGFR CKD-EPI CR 2020 65 >59 mL/min/1.7 3 [facility] BUN/Creatinine Ratio 30(H) 12 - 28 [facility] Sodium 136 134 - 144 mmol/L [facility] Potassium 4.6 3.5 - 5.2 mmol/L [facility] Chloride 96 96 - 106 mmol/L [facility] Bicarbonate (CO2) 18(L) 20 - 29 mmol/L [facility] Calcium 9.9 8.7 - 10.3 mg/dL [facility] Albumin 4.4 3.9 - 4.9 g/dL [facility] Phosphorus 4.1 3.0 - 4.3 mg/dL [facility] Blood (Blood, Venous) 03/18/2025 11:43 AM EDT 03/18/2025 us Que Castillo MD LAB BLOOD ORDERABLES Final Re sult [facility] [address] [place] [phone] documented in this encounter Visit Diagnoses Diagnosis Hypertension- Primary Persistent proteinuria documented in this encounter Care Teams Mine Patrol Relationship Specialty Start Date End Date Sujatha Fragoso PCP - General Physician Wireless Sales Representative 02/07/24 documented as of this encounter
== END 2025-03-20 11:21 | disposition home or self-care (01) ==
LOC: HO.RHES 10:12
PROVIDERS: PCP Physician Assistant Medical; Visit Provider Internal Medicine Rheumatology
DX: M34.89 Other systemic sclerosis (principal); Z79.899 Other long term (current) drug therapy; R74.01 Elevation of levels of liver transaminase levels
CPT/HCPCS: 99214; G2211

== ENCOUNTER 2025-03-20 10:12 | Outpatient (REF) | payer MEDICARE, SELFPAY ==
[2025-03-20 17:47] LABS: MANUAL DIFF FLAG NO
[2025-03-20 17:58] LABS: Basophils Absolute Auto 0.1 X10*3/uL (0.0-0.2); Basophils Percent Auto 0.6 % (0-2); Eosinophils Absolute Auto 0.1 X10*3/uL (0.0-0.4); Eosinophils Percent Auto 1.3 % (0-4); Hemoglobin 13.4 g/dl (12.0-16.0); Imm Gran Abs Auto 0.09 X10*3/uL (0.00-0.03); Imm Gran Pct Auto 0.9 % (0.0-0.4); Lymphocytes Absolute Auto 2.1 X10*3/uL (1.2-4.9); Mean Corpuscular HGB Conc 33.5 g/dl (31.0-35.0); Mean Corpuscular Volume 89.5 fL (80.0-98.0); Mean Platelet Volume 9.3 fL (9.4-12.3); Monocytes Absolute Auto 0.5 X10*3/uL (0.1-1.2); Monocytes Percent Auto 5.3 % (2-11); Neutrophils Percent Auto 70.9 % (45-73); Platelet Count 218 X10*3/uL (160-400); Red Blood Count 4.47 X10*6/uL (4.20-5.50); Red Cell Distribution Width 13.3 % (11.0-16.0); White Blood Count 9.8 X10*3/uL (4.8-10.8)
[2025-03-20 18:08] LABS: Alanine Aminotransferase 42 U/L (0-31); Albumin Level 4.1 g/dL (3.5-5.0); Alkaline Phosphatase 231 U/L (39-117); Aspartate Amino Transferase 36 U/L (5-31); Bilirubin Direct 0.2 mg/dL (0.0-0.5); Bilirubin Total 0.4 mg/dL (0.0-1.0); C Reactive Protein 1.31 mg/dL (< or = 0.50); Estimated Glomerular Filt Rate 42; Total Protein 7.5 g/dL (6.5-8.0)
[2025-03-20 18:50] LABS: Erythrocyte Sedimentation Rate 82 MM/HR (0-20)
== END 2025-03-20 10:13 | disposition home or self-care (01) ==
LOC: HO.HKASLDS 10:12
PROVIDERS: PCP Physician Assistant Medical; Visit Provider Internal Medicine Rheumatology
DX: M34.89 Other systemic sclerosis (principal); R74.01 Elevation of levels of liver transaminase levels; Z79.60 Long term (current) use of unspecified immunomodulators and immunosuppressants; Z79.899 Other long term (current) drug therapy
CPT/HCPCS: 36415; 80076; 82565; 85025; 85652; 86140; 99212